=== PATIENT | female | born 1945 | race Caucasian/White ===

== ENCOUNTER → 2016-10-29 | Outpatient (CLI) | payer MEDICARE, OTHER ==
[~2016-10-29] VITALS: Ht 165.1 cm; Wt 68.9 kg
[~2016-10-29] MED LIST: /ESOM40CA OR; AMLO10CA PO; AMLO5TAB OR; AMLODIPINE/BENAZEPRI; ASPI81TA83 OR; ASPI81TA85 PO; BENA10TA2 OR; BONI150T PO; BONIVA OR; CALC500T49 PO; CALCCHW12; CALCCHW12 PO; CALCIUM CARBONATE; CYMB60CA3 PO; DULO20CA OR; EVIS1TAB PO; EYEDRO; FERR325T3 PO; FISH1000 OR; FISHCAP; FLECTOR1.3 TOP; HYDR-2808 PO; HYDROCODONE APAP; IBUP400T; LEVO100T5 PO; LEVO50TA2; LEVO75TA2 OR; LIDO5DIS TD; LIDO5DIS36 TD; LIDOCAINE 2% INJ 100 MG/5 ML SDV (FOR ANES.) As Ordered ONE; LIPI10TA; LUBRICANT EYE DROPS OU; MULT1TAB9 PO; NEXIUM; NS 1,000 ML IV SCH; OMEG1CAP16 PO; PROPOFOL 500 MG/50 ML VIAL As Ordered ONE; RANI1TAB38 PO; SIMV20TA2 OR; SIMV20TA2 PO; SKEL-29 PO; SKEL800T5 OR; TOPA50TA7 PO; TOPI25TA2 OR; TUMS500C OR; TYLENOL #3; TYLENOL #3 OR; VICO5TAB; VITA200016 PO; VITA250L PO; VITA500C24 PO; VITACAP31; VITAMIN D50000 UNT OR; VOLT1GEL EX; VOLT1GEL24 TD; [UNRECOGNIZED DRUG - OTHER]; [UNRECOGNIZED DRUG - OTHER]; hydrocodone; lotrel PO
--- NOTE | 2016-10-29 08:17 | ROOR ---
Patient Name: Janet Burroughs Procedure Date: 10/29/2016 8:02 AM Date of : 1945 Age: 71 Room: [facility] Gender: Female Note Status: Finalized Procedure: Upper GI endoscopy + SBB Indications: Iron deficiency anemia, Heartburn Providers: Homer Moreno MD Referring MD: Homer Freeman MD Requesting Provider: Medicines: Monitored Anesthesia Care Complications: No immediate complications. Procedure: Pre-Anesthesia Assessment: - The heart rate, respiratory rate, oxygen saturations, blood pressure, adequacy of pulmonary ventilation, and response to care were monitored throughout the procedure. The Endoscope was introduced through the mouth, and advanced to the second part of duodenum. The upper GI endoscopy was accomplished without difficulty. The patient tolerated the procedure well. Findings: The Z-line was variable and was found 40 cm from the incisors. A small hiatal hernia was present. No other significant abnormalities were identified in a careful examination of the stomach. The exam of the duodenum was otherwise normal. Biopsies for histology were taken with a cold forceps in the first portion of the duodenum for evaluation of celiac disease. The exam was otherwise without abnormality. Impression: - Z-line variable, 40 cm from the incisors. - Small hiatal hernia. - The examination was otherwise normal. - Biopsies were taken with a cold forceps for evaluation of celiac disease. - The examination was otherwise normal. Recommendation: - Patient has a contact number available for emergencies. The signs and symptoms of potential delayed complications were discussed with the patient. Return to normal activities tomorrow. Written discharge instructions were provided to the patient. - Discharge patient to home. - Follow an antireflux regimen. - Continue present medications. - Await pathology results. - Telephone GI clinic for pathology results in 1 week. - Check Portal Online for Path Results.([email or web address]) - Return to referring physician. - The findings and recommendations were discussed with the patient's family. Homer Moreno MD Homer Moreno MD 10/29/2016 8:16:35 AM This report has been signed electronically. Number of Addenda: 0 Note Initiated On: 10/29/2016 8:02 AM Estimated Blood Loss: Estimated blood loss: none.
--- NOTE | 2016-10-29 08:36 | ROOR ---
Patient Name: Janet Burroughs Procedure Date: 10/29/2016 8:02 AM Date of : 1945 Age: 71 Room: [facility] Gender: Female Note Status: Finalized Procedure: Colonoscopy to Cecum Indications: Unexplained iron deficiency anemia Providers: Homer Moreno MD Referring MD: Homer Freeman MD Requesting Provider: Medicines: Monitored Anesthesia Care Complications: No immediate complications. Procedure: Pre-Anesthesia Assessment: - The heart rate, respiratory rate, oxygen saturations, blood pressure, adequacy of pulmonary ventilation, and response to care were monitored throughout the procedure. The Colonoscope was introduced through the anus and advanced to the cecum, identified by appendiceal orifice and ileocecal valve. The colonoscopy was performed without difficulty. The patient tolerated the procedure well. The quality of the bowel preparation was poor. Findings: The perianal and digital rectal examinations were normal. Non-bleeding internal hemorrhoids were found during retroflexion. The hemorrhoids were small and Grade I (internal hemorrhoids that do not prolapse). Multiple small and large-mouthed diverticula were found in the recto-sigmoid colon, sigmoid colon and descending colon. The exam was otherwise without abnormality on direct and retroflexion views. Impression: - Preparation of the colon was poor. - Non-bleeding internal hemorrhoids. - Diverticulosis in the recto-sigmoid colon, in the sigmoid colon and in the descending colon. - The examination was otherwise normal on direct and retroflexion views. - No specimens collected. - The exam was otherwise normal to the cecum. Recommendation: - Patient has a contact number available for emergencies. The signs and symptoms of potential delayed complications were discussed with the patient. Return to normal activities tomorrow. Written discharge instructions were provided to the patient. - High fiber diet. - Discharge patient to home. - Continue present medications. - Repeat colonoscopy for symptoms only. - Return to referring physician. - The findings and recommendations were discussed with the patient's family. Homer Moreno MD Homer Moreno MD 10/29/2016 8:35:59 AM This report has been signed electronically. Number of Addenda: 0 Note Initiated On: 10/29/2016 8:02 AM Estimated Blood Loss: Estimated blood loss: none.
[2016-10-29 08:50] VITALS: BP 142/81
== END | disposition home or self-care (01) ==
LOC: M OPP 06:41
PROVIDERS: ATTEND Internal Medicine Gastroenterology
DX: D50.9 Iron deficiency anemia, unspecified (principal); K64.0 First degree hemorrhoids; K57.30 Diverticulosis of large intestine without perforation or abscess without bleeding; K21.9 Gastro-esophageal reflux disease without esophagitis; K22.8 Other specified diseases of esophagus; K44.9 Diaphragmatic hernia without obstruction or gangrene; I10 Essential (primary) hypertension; E78.00 Pure hypercholesterolemia, unspecified; E03.9 Hypothyroidism, unspecified; M19.90 Unspecified osteoarthritis, unspecified site; B19.10 Unspecified viral hepatitis B without hepatic coma; F33.9 Major depressive disorder, recurrent, unspecified; G43.909 Migraine, unspecified, not intractable, without status migrainosus; Z79.899 Other long term (current) drug therapy; Z79.82 Long term (current) use of aspirin

== ENCOUNTER → 2017-01-18 | Outpatient (CLI) | payer MEDICARE, OTHER ==
[~2017-01-18] MED LIST changes: -LIDO5DIS36 TD; +LIDO5DIS41 TD; -LIDOCAINE 2% INJ 100 MG/5 ML SDV (FOR ANES.) As Ordered ONE; -NS 1,000 ML IV SCH; -PROPOFOL 500 MG/50 ML VIAL As Ordered ONE; -SKEL-29 PO; +SKEL800T97 PO; -TOPA50TA7 PO; +TOPA50TA8 PO; +VOLT1GEL15 TD; -VOLT1GEL24 TD
[2017-01-18 10:45] LABS: FREE T4 0.8 NG/DL (0.76-1.46)
== END ==
LOC: M LAB 09:14
PROVIDERS: ATTEND Family Medicine
DX: E03.8 Other specified hypothyroidism (principal)

== ENCOUNTER → 2017-07-11 | Outpatient (CLI) | payer MEDICARE, OTHER ==
[2017-07-11 17:13] LABS: FREE T4 1.22 NG/DL (0.76-1.46); THYROID STIMULATING HORMONE 0.761 uIU/ML (0.358-3.740)
== END ==
LOC: M LAB 16:03
DX: E89.0 Postprocedural hypothyroidism (principal)
CPT/HCPCS: 84443

== ENCOUNTER → 2018-04-10 | Outpatient (CLI) | payer MEDICARE, OTHER ==
[~2018-04-10] MED LIST changes: -/ESOM40CA OR; -AMLO10CA PO; -AMLO5TAB OR; -AMLODIPINE/BENAZEPRI; -ASPI81TA83 OR; -ASPI81TA85 PO; -BENA10TA2 OR; -BONI150T PO; -BONIVA OR; -CALC500T49 PO; -CALCCHW12; -CALCCHW12 PO; -CALCIUM CARBONATE; -CYMB60CA3 PO; -DULO20CA OR; +E-Z-GAS II EFFERVESCENT PACKET (SODIUM BICARB./CITRIC ACID/SIMETHICONE) As Ordered; +E-Z-HD 98% w/w 340GM SUSP BTL As Ordered; +E-Z-PAQUE 96% w/w SUSP 176GM BTL As Ordered; -EVIS1TAB PO; -EYEDRO; -FERR325T3 PO; -FISH1000 OR; -FISHCAP; -FLECTOR1.3 TOP; -HYDR-2808 PO; -HYDROCODONE APAP; -IBUP400T; -LEVO100T5 PO; -LEVO50TA2; -LEVO75TA2 OR; -LIDO5DIS TD; -LIDO5DIS41 TD; -LIPI10TA; -LUBRICANT EYE DROPS OU; -MULT1TAB9 PO; -NEXIUM; -OMEG1CAP16 PO; -RANI1TAB38 PO; -SIMV20TA2 OR; -SIMV20TA2 PO; -SKEL800T5 OR; -SKEL800T97 PO; -TOPA50TA8 PO; -TOPI25TA2 OR; -TUMS500C OR; -TYLENOL #3; -TYLENOL #3 OR; -VICO5TAB; -VITA200016 PO; -VITA250L PO; -VITA500C24 PO; -VITACAP31; -VITAMIN D50000 UNT OR; -VOLT1GEL EX; -VOLT1GEL15 TD; -[UNRECOGNIZED DRUG - OTHER]; -[UNRECOGNIZED DRUG - OTHER]; -hydrocodone; -lotrel PO
== END ==
LOC: M RAD 09:23
DX: K21.9 Gastro-esophageal reflux disease without esophagitis (principal); R13.12 Dysphagia, oropharyngeal phase
CPT/HCPCS: 74220

== ENCOUNTER → 2018-05-19 | Outpatient (CLI) | payer MEDICARE, OTHER | LOC: M ST 08:18 | DX: R13.12 Dysphagia, oropharyngeal phase (principal) | CPT/HCPCS: 74230 ==

== ENCOUNTER 2018-06-10 07:57 | Outpatient (RCR) | payer MEDICARE, OTHER ==
[~2018-06-10 07:57] MED LIST changes: +/ESOM40CA OR; +AMLO10CA PO; +AMLO5TAB OR; +AMLODIPINE/BENAZEPRI; +ASPI81TA83 OR; +ASPI81TA85 PO; +BENA10TA2 OR; +BONI150T PO; +BONIVA OR; +CALC500T49 PO; +CALCCHW12; +CALCCHW12 PO; +CALCIUM CARBONATE; +CYMB60CA3 PO; +DULO20CA OR; -E-Z-GAS II EFFERVESCENT PACKET (SODIUM BICARB./CITRIC ACID/SIMETHICONE) As Ordered; -E-Z-HD 98% w/w 340GM SUSP BTL As Ordered; -E-Z-PAQUE 96% w/w SUSP 176GM BTL As Ordered; +EVIS1TAB PO; +EYEDRO; +FERR325T3 PO; +FISH1000 OR; +FISHCAP; +FLECTOR1.3 TOP; +HYDR-2808 PO; +HYDROCODONE APAP; +IBUP400T; +LEVO100T5 PO; +LEVO50TA2; +LEVO75TA2 OR; +LIDO5DIS TD; +LIDO5DIS41 TD; +LIPI10TA; +LUBRICANT EYE DROPS OU; +MULT1TAB9 PO; +NEXIUM; +OMEG1CAP16 PO; +RANI1TAB38 PO; +SIMV20TA2 OR; +SIMV20TA2 PO; +SKEL800T5 OR; +SKEL800T97 PO; +TOPA50TA8 PO; +TOPI25TA2 OR; +TUMS500C OR; +TYLENOL #3; +TYLENOL #3 OR; +VICO5TAB; +VITA200016 PO; +VITA250L PO; +VITA500C24 PO; +VITACAP31; +VITAMIN D50000 UNT OR; +VOLT1GEL EX; +VOLT1GEL15 TD; +[UNRECOGNIZED DRUG - OTHER]; +[UNRECOGNIZED DRUG - OTHER]; +hydrocodone; +lotrel PO
--- NOTE | 2018-06-10 11:42 | NUR ---
Pt tolerates regular solids and thin liquids w/o s/sx aspiration or penetration. Recommend dysphagia tx for GERD management strategies. Addendum: 06/10/18 at [address] [facility] Amended: Links added.
== END 2018-07-07 ==
LOC: M ST 07:57
PROVIDERS: ATTEND Otolaryngology
DX: R13.12 Dysphagia, oropharyngeal phase (principal)
CPT/HCPCS: 92526; 92610; G8996; G8997; G8998

== ENCOUNTER 2018-12-03 07:26 | Day surgery (SDC) | payer MEDICARE, OTHER ==
[~2018-12-03] VITALS: Ht 165.1 cm; Wt 66.2 kg
[~2018-12-03 07:26] MED LIST changes: -/ESOM40CA OR; +ACETAMINOPHEN 325 MG TAB PO PRN; -BONI150T PO; +BONI1TAB PO; +BSS with VANC/TOB/EPI for EYE CASES IR ONE; +CALC500C16 PO; +CYCLOPENTOLATE 2% OPHTH SOLN 2ML BTL OS ONE; +CYMB1CAP4 OR; -DULO20CA OR; +HEALON DUET PRO(HEALON 10MG/ML 0.55ML & HEALON ENDOCOAT 30MG/ML 0.85ML) As Ordered ONE; +LIDOCAINE 1% SDV 5 ML VIAL As Ordered ONE; +LIDOCAINE 2% W/EPIN INJ 20ML **PRES FREE As Ordered ONE; +LIDOCAINE 3.5 % 1ML OPHTH TOPICAL GEL OU ONE; +MIDAZOLAM INJ 2 MG/2 ML VIAL (J2250) As Ordered ONE; +MOXIFLOXACIN IN BSS 0.25MG/0.25ML INTRACAMERAL INJ (OR EYE ONLY)(J2280) As Ordered ONE; +MULT-40 PO; +NEXI1CAP3 OR; +OFLOXACIN 0.3 % (OCUFLOX) OPTH SOL 5ML OS ONE; +PHENYLEPHRINE 2.5% OPHTH SOL 2ML OS ONE; +PHENYLEPHRINE HCL 10 % OPHTH. SOL 5ML OS PRN; +POVIDONE-IODINE 5% OPHTH PREP SOL 30ML As Ordered ONE; +TRIAMCINOLONE PRES FR 40 MG/ML 1ML(TRIESENCE)(OR EYE ONLY)(J3300 PER 1MG) As Ordered ONE; +TROPICAMIDE 1% OPHTH SOLN 2ML OS ONE; +fentaNYL 100 MCG/2 ML INJECTION (J3010) As Ordered ONE
[2018-12-03] MEDS ORDERED: AcetaZOLAMIDE 500 MG ER CAP As Ordered ONE (09:47)
[2018-12-03 09:55] VITALS: BP 189/79
[2018-12-03] MEDS ORDERED: TRIMETHOBENZAMIDE 300 MG CAP PO PRN (10:00)
[2018-12-03] MEDS ORDERED: AcetaZOLAMIDE 500 MG ER CAP PO ONE (10:00)
== END 2018-12-03 10:08 | disposition home or self-care (01) ==
LOC: M SDC 07:26
PROVIDERS: ATTEND Ophthalmology
DX: H25.9 Unspecified age-related cataract (principal); I10 Essential (primary) hypertension; E78.5 Hyperlipidemia, unspecified; E03.9 Hypothyroidism, unspecified; G43.909 Migraine, unspecified, not intractable, without status migrainosus; Z79.899 Other long term (current) drug therapy
CPT/HCPCS: 66984; 92015; J2250; J2280; J3010; J3300; V2632

== ENCOUNTER → 2019-02-19 | Outpatient (CLI) | payer MEDICARE, OTHER ==
[~2019-02-19] MED LIST changes: -ACETAMINOPHEN 325 MG TAB PO PRN; -AMLO10CA PO; +AMLO10CA17 PO; -BSS with VANC/TOB/EPI for EYE CASES IR ONE; -CYCLOPENTOLATE 2% OPHTH SOLN 2ML BTL OS ONE; +E-Z-GAS II EFFERVESCENT PACKET (SODIUM BICARB./CITRIC ACID/SIMETHICONE) As Ordered ONE; +E-Z-HD 98% w/w 340GM SUSP BTL As Ordered ONE; +E-Z-PAQUE 96% w/w SUSP 176GM BTL As Ordered ONE; -HEALON DUET PRO(HEALON 10MG/ML 0.55ML & HEALON ENDOCOAT 30MG/ML 0.85ML) As Ordered ONE; -LIDOCAINE 1% SDV 5 ML VIAL As Ordered ONE; -LIDOCAINE 2% W/EPIN INJ 20ML **PRES FREE As Ordered ONE; -LIDOCAINE 3.5 % 1ML OPHTH TOPICAL GEL OU ONE; -MIDAZOLAM INJ 2 MG/2 ML VIAL (J2250) As Ordered ONE; -MOXIFLOXACIN IN BSS 0.25MG/0.25ML INTRACAMERAL INJ (OR EYE ONLY)(J2280) As Ordered ONE; -OFLOXACIN 0.3 % (OCUFLOX) OPTH SOL 5ML OS ONE; -PHENYLEPHRINE 2.5% OPHTH SOL 2ML OS ONE; -PHENYLEPHRINE HCL 10 % OPHTH. SOL 5ML OS PRN; -POVIDONE-IODINE 5% OPHTH PREP SOL 30ML As Ordered ONE; -TRIAMCINOLONE PRES FR 40 MG/ML 1ML(TRIESENCE)(OR EYE ONLY)(J3300 PER 1MG) As Ordered ONE; -TROPICAMIDE 1% OPHTH SOLN 2ML OS ONE; -fentaNYL 100 MCG/2 ML INJECTION (J3010) As Ordered ONE
--- NOTE | 2019-02-19 15:58 | REP ---
Examination Requested: Esophagram Barium Swallow Reason For Exam/Comment: Dysphasia Esophagram: The procedure was performed MOSHE Armenta, under the direct supervision of Dr. Pelaez. The images were reviewed with Dr. Pelaez. A single PA chest x-ray is submitted as a sharepoint trainer film. The superior mediastinal structures are midline. The heart size is within normal limits. The lungs are clear. Liquid barium and gas producing granules were given in the erect position as well as liquid barium in the prone oblique position, in order to perform a double contrast esophagram examination. Oral and pharyngeal stages of the examination demonstrate laryngeal penetration. Esophageal transport is efficient and there is no esophagitis, stricture, or mucosal ring noted. There is no hiatal hernia noted. Gastroesophageal reflux was not visualized throughout the course of the exam. Impression: 1. Laryngeal penetration, otherwise unremarkable esophagram 0.4 minutes of fluoroscopy time was utilized for this procedure. Some fluoroscopic images are performed with last image hold technology. These images require no additional radiation. Reviewed by MOSHE Richardson 02/19/2019 12:59 P Electronically Signed by Ray Pelaez DO 02/19/2019 03:49 P
== END ==
LOC: M RAD 07:40
PROVIDERS: ATTEND Otolaryngology
DX: K21.9 Gastro-esophageal reflux disease without esophagitis (principal); R13.12 Dysphagia, oropharyngeal phase

== ENCOUNTER 2019-04-06 09:00 | Day surgery (SDC) | payer MEDICARE, OTHER ==
[~2019-04-06] VITALS: Ht 165.1 cm; Wt 65.7 kg
[2019-04-06] MEDS: NS 1,000 ML IV SCH ×2 (06:00→09:29)
[~2019-04-06 09:00] MED LIST changes: +DONE10TA90 PO; -E-Z-GAS II EFFERVESCENT PACKET (SODIUM BICARB./CITRIC ACID/SIMETHICONE) As Ordered ONE; -E-Z-HD 98% w/w 340GM SUSP BTL As Ordered ONE; -E-Z-PAQUE 96% w/w SUSP 176GM BTL As Ordered ONE; +LIDOCAINE 2% INJ 100 MG/5 ML SDV (FOR ANES.) As Ordered ONE; +OMEP40CA2 PO; +PROPOFOL 200 MG/20 ML VIAL As Ordered ONE; +SALA1TAB PO
[2019-04-06] MEDS ORDERED: fentaNYL 100 MCG/2 ML INJECTION (J3010) As Ordered ONE (10:08)
[2019-04-06] MEDS ORDERED: PROPOFOL 200 MG/20 ML VIAL As Ordered ONE (10:37)
--- NOTE | 2019-04-06 10:56 | ROOR ---
Patient Name: Janet Burroughs Procedure Date: 04/06/2019 10:02 AM Date of : 1945 Age: 74 Room: [facility] Gender: Female Note Status: Finalized Procedure: Upper GI endoscopy Indications: Dysphagia, Suspected esophageal reflux Providers: Get Trevizo MD Referring MD: Christi Perez NP Requesting Provider: Medicines: Monitored Anesthesia Care Complications: No immediate complications. Procedure: Pre-Anesthesia Assessment: - Prior to the procedure, a History and Physical was performed, and patient medications and allergies were reviewed. The patient is competent. The risks and benefits of the procedure and the sedation options and risks were discussed with the patient. All questions were answered and informed consent was obtained. Patient identification and proposed procedure were verified by the physician, the nurse and the anesthesiologist in the procedure room. Mental Status Examination: normal. Airway Examination: normal oropharyngeal airway and neck mobility. Respiratory Examination: clear to auscultation. CV Examination: normal. Prophylactic Antibiotics: The patient does not require prophylactic antibiotics. Prior Anticoagulants: The patient has taken no previous anticoagulant or antiplatelet agents. ASA Grade Assessment: II - A patient with mild systemic disease. After reviewing the risks and benefits, the patient was deemed in satisfactory condition to undergo the procedure. The anesthesia plan was to use monitored anesthesia care (MAC). Immediately prior to administration of medications, the patient was re-assessed for adequacy to receive sedatives. The heart rate, respiratory rate, oxygen saturations, blood pressure, adequacy of pulmonary ventilation, and response to care were monitored throughout the procedure. The physical status of the patient was re-assessed after the procedure. The Endoscope was introduced through the mouth, and advanced to the second part of duodenum. The upper GI endoscopy was accomplished without difficulty. The patient tolerated the procedure well. Findings: LA Grade A (one or more mucosal breaks less than 5 mm, not extending between tops of 2 mucosal folds) esophagitis with no bleeding was found in the distal esophagus. Biopsies were taken with a cold forceps for histology. Verification of patient identification for the specimen was done by the physician and nurse using the patient's name, date and medical record number. Estimated blood loss was minimal. The Z-line was irregular and was found 41 cm from the incisors. Biopsies were obtained from the proximal and distal esophagus with cold forceps for histology of suspected eosinophilic esophagitis. Scattered mild inflammation characterized by erythema and granularity was found in the gastric body and in the gastric antrum. Biopsies were taken with a cold forceps for Helicobacter pylori testing. The duodenal bulb and second portion of the duodenum were normal. Impression: - LA Grade A reflux esophagitis. Rule out Varner's esophagus. Biopsied. - Z-line irregular, 41 cm from the incisors. Biopsied. - Gastritis. Biopsied. - Normal duodenal bulb and second portion of the duodenum. Recommendation: - Patient has a contact number available for emergencies. The signs and symptoms of potential delayed complications were discussed with the patient. Return to normal activities tomorrow. Written discharge instructions were provided to the patient. - High fiber diet. - Continue present medications. - Follow an antireflux regimen. - Perform a modified barium swallow at appointment to be scheduled. - Await pathology results. - Return to GI clinic in [facility] (address [address], [address], [place] [address]) in 4 -- 6 weeks. Please call GI clinic @ [phone] for apppointment date and time. - Return to primary care physician. Get Trevizo MD Get Trevizo MD 04/06/2019 10:55:48 AM Electronically signed by Get Trevizo MD Number of Addenda: 0 Note Initiated On: 04/06/2019 10:02 AM Estimated Blood Loss: Estimated blood loss was minimal.
--- NOTE | 2019-04-06 11:00 | ROOR ---
Patient Name: Janet Burroughs Procedure Date: 04/06/2019 10:03 AM Date of : 1945 Age: 74 Room: [facility] Gender: Female Note Status: Finalized Procedure: Colonoscopy Indications: Weight loss Providers: Get Trevizo MD Referring MD: Christi Perez NP Requesting Provider: Medicines: Monitored Anesthesia Care Complications: No immediate complications. Procedure: Pre-Anesthesia Assessment: - Prior to the procedure, a History and Physical was performed, and patient medications and allergies were reviewed. The patient is competent. The risks and benefits of the procedure and the sedation options and risks were discussed with the patient. All questions were answered and informed consent was obtained. Patient identification and proposed procedure were verified by the physician, the nurse and the anesthesiologist in the procedure room. Mental Status Examination: alert and oriented. Airway Examination: normal oropharyngeal airway and neck mobility. Respiratory Examination: clear to auscultation. CV Examination: normal. Prophylactic Antibiotics: The patient does not require prophylactic antibiotics. Prior Anticoagulants: The patient has taken no previous anticoagulant or antiplatelet agents. ASA Grade Assessment: II - A patient with mild systemic disease. After reviewing the risks and benefits, the patient was deemed in satisfactory condition to undergo the procedure. The anesthesia plan was to use monitored anesthesia care (MAC). Immediately prior to administration of medications, the patient was re-assessed for adequacy to receive sedatives. The heart rate, respiratory rate, oxygen saturations, blood pressure, adequacy of pulmonary ventilation, and response to care were monitored throughout the procedure. The physical status of the patient was re-assessed after the procedure. The Colonoscope was introduced through the anus and advanced to the terminal ileum, with identification of the appendiceal orifice and IC valve. The colonoscopy was performed without difficulty. The patient tolerated the procedure well. The quality of the bowel preparation was fair. The terminal ileum, ileocecal valve, appendiceal orifice, and rectum were photographed. Scope insertion time was 4 minutes. Scope withdrawal time was 9 minutes. The total duration of the procedure was 14 minutes. Findings: The perianal and digital rectal examinations were normal. The terminal ileum appeared normal. Two sessile polyps were found in the transverse colon. The polyps were 6 to 8 mm in size. These polyps were removed with a cold snare. Resection and retrieval were complete. Verification of patient identification for the specimen was done by the physician and nurse using the patient's name, date and medical record number. Estimated blood loss was minimal. Semi-liquid semi-solid stool was found from sigmoid to ascending colon, interfering with visualization. Lavage of the area was performed using a large amount of sterile water, resulting in clearance with fair visualization. Multiple small and large-mouthed diverticula were found in the sigmoid colon. There was no evidence of diverticular bleeding. Non-bleeding external and internal hemorrhoids were found during retroflexion. The hemorrhoids were medium-sized. Impression: - Preparation of the colon was fair. - The examined portion of the ileum was normal. - Two 6 to 8 mm polyps in the transverse colon, removed with a cold snare. Resected and retrieved. - Stool from sigmoid to ascending colon. - Diverticulosis in the sigmoid colon. There was no evidence of diverticular bleeding. - Non-bleeding external and internal hemorrhoids. Recommendation: - Patient has a contact number available for emergencies. The signs and symptoms of potential delayed complications were discussed with the patient. Return to normal activities tomorrow. Written discharge instructions were provided to the patient. - High fiber diet. - Continue present medications. - Await pathology results. - Repeat colonoscopy in 1 year for surveillance based on pathology results. - Return to GI clinic in [facility] (address [address], [address], [place], [address]) in 4 -- 6 weeks. Please call GI clinic @ [phone] for apppointment date and time. - Return to primary care physician. Get Trevizo MD Get Trevizo MD 04/06/2019 11:00:39 AM Electronically signed by Get Trevizo MD Number of Addenda: 0 Note Initiated On: 04/06/2019 10:03 AM Estimated Blood Loss: Estimated blood loss was minimal.
[2019-04-06 11:10] VITALS: BP 165/68
== END 2019-04-06 11:25 | disposition home or self-care (01) ==
LOC: M OPP 09:00
PROVIDERS: ATTEND Internal Medicine Gastroenterology
DX: R63.4 Abnormal weight loss (principal); D12.3 Benign neoplasm of transverse colon; K57.30 Diverticulosis of large intestine without perforation or abscess without bleeding; K64.8 Other hemorrhoids; R13.10 Dysphagia, unspecified; K22.8 Other specified diseases of esophagus; K29.70 Gastritis, unspecified, without bleeding; K21.0 Gastro-esophageal reflux disease with esophagitis; I10 Essential (primary) hypertension; E78.5 Hyperlipidemia, unspecified; E03.9 Hypothyroidism, unspecified; G30.9 Alzheimer's disease, unspecified; Z86.19 Personal history of other infectious and parasitic diseases; M19.90 Unspecified osteoarthritis, unspecified site; F32.9 Major depressive disorder, single episode, unspecified; Z79.899 Other long term (current) drug therapy
CPT/HCPCS: 43239; 45385; 88305; J3010

== ENCOUNTER → 2019-05-06 | Outpatient (CLI) | payer MEDICARE, OTHER ==
[~2019-05-06] MED LIST changes: +E-Z-PAQUE 96% w/w SUSP 176GM BTL As Ordered ONE; -LIDOCAINE 2% INJ 100 MG/5 ML SDV (FOR ANES.) As Ordered ONE; -OMEP40CA2 PO; +OMEP40CA97 PO; -PROPOFOL 200 MG/20 ML VIAL As Ordered ONE; +VARIBAR NECTAR 40% w/v 240ML SUSP BTL As Ordered ONE; +VARIBAR PUDDING 40% w/v 230ML TUBE As Ordered ONE
--- NOTE | 2019-05-07 14:40 | REP ---
COOKIE SWALLOW The procedure was performed under the direct supervision of Dr. Chris. The procedure was performed with the Yani Bonilla from speech pathology present. 5 ml aliquots of thin, mixed fruit, soft, solid and apple sauce consistency barium was administered. With thin consistency barium there is laryngeal penetration. The detailed report of this examination will be provided by speech pathology. 2 minutes of fluoroscopy time was utilized for this procedure. Electronically Signed by MOSHE Lemus 05/06/2019 04:52 P Electronically Signed by Fabio Chris MD 05/07/2019 02:31 P
== END ==
LOC: M RAD 14:49
PROVIDERS: ATTEND Internal Medicine Gastroenterology
DX: R13.10 Dysphagia, unspecified (principal)

== ENCOUNTER → 2019-06-02 | Outpatient (CLI) | payer MEDICARE, OTHER ==
[~2019-06-02] MED LIST changes: +E-Z-GAS II EFFERVESCENT PACKET (SODIUM BICARB./CITRIC ACID/SIMETHICONE) As Ordered ONE; +E-Z-HD 98% w/w 340GM SUSP BTL As Ordered ONE; -SIMV20TA2 PO; +SIMV20TA22 PO; -VARIBAR NECTAR 40% w/v 240ML SUSP BTL As Ordered ONE; -VARIBAR PUDDING 40% w/v 230ML TUBE As Ordered ONE
--- NOTE | 2019-06-02 15:12 | REP ---
Examination Requested: Esophagram Barium Swallow Reason For Exam/Comment: Dysphasia Esophagram: The procedure was performed Gwen Gage, RSA, under the direct supervision of Dr. Charles. The images were reviewed with Dr. Charles. A single PA chest x-ray is submitted as a finished stock inspector film. The superior mediastinal structures are midline. The heart size is within normal limits. The lungs are clear. Liquid barium and gas producing granules were given in the erect position as well as liquid barium in the prone oblique position, in order to perform a double contrast esophagram examination. Oral and pharyngeal stages of the examination again demonstrated laryngeal penetration, consistent with findings on the modified barium swallow dated 05/06/2019 and an esophagram dated 02/19/2019. Esophageal transport is efficient and there is no esophagitis, stricture, or mucosal ring noted. There is no hiatal hernia noted. Gastroesophageal reflux was not visualized throughout the course of the exam. Impression: 1. Laryngeal penetration. 0.4 minutes of fluoroscopy time was utilized for this procedure. Some fluoroscopic images are performed with last image hold technology. These images require no additional radiation. Reviewed by MOSHE Richardson 06/02/2019 01:42 P Electronically Signed by Clint Charles MD 06/02/2019 03:02 P
== END ==
LOC: M RAD 08:11
PROVIDERS: ATTEND Internal Medicine Gastroenterology
DX: R13.12 Dysphagia, oropharyngeal phase (principal)

== ENCOUNTER → 2019-07-17 | Outpatient (CLI) | payer MEDICARE, BC ==
[~2019-07-17] MED LIST changes: -E-Z-GAS II EFFERVESCENT PACKET (SODIUM BICARB./CITRIC ACID/SIMETHICONE) As Ordered ONE; -E-Z-HD 98% w/w 340GM SUSP BTL As Ordered ONE; -E-Z-PAQUE 96% w/w SUSP 176GM BTL As Ordered ONE
[2019-07-17 09:34] LABS: BLOOD UREA NITROGEN 17 MG/DL (7-18); CREATININE FOR GFR 0.75 MG/DL (0.55-1.30); GLOMERULAR FILTRATION RATE > 60.0 (>39)
== END ==
LOC: M LAB 08:15
PROVIDERS: ATTEND Internal Medicine Gastroenterology
DX: R63.4 Abnormal weight loss (principal); K21.0 Gastro-esophageal reflux disease with esophagitis

== ENCOUNTER → 2019-07-30 | Outpatient (CLI) | payer MEDICARE, BC ==
[~2019-07-30] MED LIST changes: +PROHANCE 279.3MG/ML 15ML VIAL (A9576) As Ordered ONE
--- NOTE | 2019-07-30 11:01 | REP ---
MRI brain without and with IV contrast: History: Dysphasia. No comparison brain imaging. Technique: Axial and sagittal imaging planes are utilized for T1 and T2-weighted scans. Sequences include spin-echo, fast spin echo, FLAIR, and diffusion weighted sequences. Gadolinium enhancement dose is 12 mL of intravenous ProHance. MRI findings: The bony calvarium is unremarkable. Craniocervical junction and upper cervical cord are normal in appearance. Diffusion weighted scans show no evidence of restricted diffusion to suggest acute ischemia. There is no evidence of old cortical or deep white matter infarction. There are small vessel atherosclerotic changes in the periventricular white matter of the frontal and occipital lobes bilaterally. Lateral, third, and fourth ventricles are normal in size and position. No extra-axial fluid collection or mass is seen. Postcontrast images demonstrate enhancement in normal vascular structures. No abnormal intracranial contrast enhancement is appreciated. Impression: Small vessel atherosclerotic changes in the periventricular white matter. Otherwise unremarkable MRI study of the brain without and with IV contrast. No acute intracranial lesion. Electronically Signed by Ra Guillen MD 07/30/2019 11:19 A
== END ==
LOC: M RAD 08:46
PROVIDERS: ATTEND Internal Medicine Gastroenterology
DX: R13.12 Dysphagia, oropharyngeal phase (principal)
CPT/HCPCS: 70553; A9576

== ENCOUNTER → 2020-05-25 | Outpatient (CLI) | payer MEDICARE, BC, OTHER ==
[~2020-05-25] MED LIST changes: +AMLO10CA22 PO; +ASPI81CH33 PO; -ASPI81TA85 PO; +ASPI81TA86 PO; -HYDR-2808 PO; +HYDR-4429 PO; -PROHANCE 279.3MG/ML 15ML VIAL (A9576) As Ordered ONE
== END ==
LOC: M LABSMTC 09:24
PROVIDERS: ATTEND Anesthesiology
DX: Z01.812 Encounter for preprocedural laboratory examination (principal); Z20.828 Contact with and (suspected) exposure to other viral communicable diseases

== ENCOUNTER 2020-05-30 07:35 | Day surgery (SDC) | payer MEDICARE, BC ==
[~2020-05-30] VITALS: Ht 165.1 cm; Wt 62.1 kg
[~2020-05-30 07:35] MED LIST changes: +NS 1,000 ML IV ONE
[2020-05-30] MEDS ORDERED: propofoL 200 MG/20 ML VIAL As Ordered ONE (08:51)
--- NOTE | 2020-05-30 09:36 | ROOR ---
Patient Name: Janet Burroughs Procedure Date: 05/30/2020 8:49 AM Date of : 1945 Age: 75 Room: [facility] Gender: Female Note Status: Finalized Procedure: Colonoscopy Indications: High risk colon cancer surveillance: Personal history of colonic polyps Providers: Get Trevizo MD Referring MD: Christi Perez NP Requesting Provider: Medicines: Monitored Anesthesia Care Complications: No immediate complications. Procedure: Pre-Anesthesia Assessment: - Prior to the procedure, a History and Physical was performed, and patient medications and allergies were reviewed. The patient is competent. The risks and benefits of the procedure and the sedation options and risks were discussed with the patient. All questions were answered and informed consent was obtained. Patient identification and proposed procedure were verified by the physician, the nurse and the anesthesiologist in the procedure room. Mental Status Examination: alert and oriented. Airway Examination: normal oropharyngeal airway and neck mobility. Respiratory Examination: clear to auscultation. CV Examination: normal. Prophylactic Antibiotics: The patient does not require prophylactic antibiotics. Prior Anticoagulants: The patient has taken no previous anticoagulant or antiplatelet agents. ASA Grade Assessment: II - A patient with mild systemic disease. After reviewing the risks and benefits, the patient was deemed in satisfactory condition to undergo the procedure. The anesthesia plan was to use monitored anesthesia care (MAC). Immediately prior to administration of medications, the patient was re-assessed for adequacy to receive sedatives. The heart rate, respiratory rate, oxygen saturations, blood pressure, adequacy of pulmonary ventilation, and response to care were monitored throughout the procedure. The physical status of the patient was re-assessed after the procedure. The Colonoscope was introduced through the anus and advanced to the terminal ileum, with identification of the appendiceal orifice and IC valve. The colonoscopy was performed without difficulty. The patient tolerated the procedure well. The quality of the bowel preparation was good. The terminal ileum, ileocecal valve, appendiceal orifice, and rectum were photographed. Scope insertion time was 3 minutes. Scope withdrawal time was 10 minutes. The total duration of the procedure was 14 minutes. Findings: The perianal and digital rectal examinations were normal. The terminal ileum appeared normal. Three sessile polyps were found in the recto-sigmoid colon, descending colon and transverse colon. The polyps were 4 to 6 mm in size. These polyps were removed with a cold snare. Resection and retrieval were complete. Verification of patient identification for the specimen was done by the physician and nurse using the patient's name, date and medical record number. Estimated blood loss was minimal. Multiple small and large-mouthed diverticula were found from sigmoid to descending colon. There was no evidence of diverticular bleeding. Non-bleeding external and internal hemorrhoids were found during retroflexion. The hemorrhoids were medium-sized. Impression: - The examined portion of the ileum was normal. - Three 4 to 6 mm polyps at the recto-sigmoid colon, in the descending colon and in the transverse colon, removed with a cold snare. Resected and retrieved. - Moderate diverticulosis from sigmoid to descending colon. There was no evidence of diverticular bleeding. - Non-bleeding external and internal hemorrhoids. Recommendation: - Patient has a contact number available for emergencies. The signs and symptoms of potential delayed complications were discussed with the patient. Return to normal activities tomorrow. Written discharge instructions were provided to the patient. - High fiber diet. - Continue present medications. - Use fiber, for example Citrucel, Fibercon, Konsyl or Metamucil. - Await pathology results. - Repeat colonoscopy in 5 years for surveillance based on pathology results and depending on clinical and functional status. - Telephone GI clinic for pathology results in 2 weeks. - Return to primary care physician. Procedure Code(s): --- Professional --- 10988, Colonoscopy, flexible; with removal of tumor(s), polyp(s), or other lesion(s) by snare technique Diagnosis Code(s): --- Professional --- Z86.010, Personal history of colonic polyps K64.8, Other hemorrhoids K63.5, Polyp of colon K57.30, Diverticulosis of large intestine without perforation or abscess without bleeding CPT copyright 2019 [employer]. All rights reserved. The codes documented in this report are preliminary and upon certified coder review may be revised to meet current compliance requirements. Get Trevizo MD Get Trevizo MD 05/30/2020 9:36:14 AM Electronically signed by Get Trevizo MD Number of Addenda: 0 Note Initiated On: 05/30/2020 8:49 AM Estimated Blood Loss: Estimated blood loss was minimal.
[2020-05-30 09:55] VITALS: BP 163/74
== END 2020-05-30 09:57 | disposition home or self-care (01) ==
LOC: M OPP 07:35
PROVIDERS: ATTEND Internal Medicine Gastroenterology
DX: Z86.010 Personal history of colon polyps (principal); Z09 Encounter for follow-up examination after completed treatment for conditions other than malignant neoplasm; D12.6 Benign neoplasm of colon, unspecified; K57.30 Diverticulosis of large intestine without perforation or abscess without bleeding; K64.8 Other hemorrhoids; I10 Essential (primary) hypertension; E13.9 Other specified diabetes mellitus without complications; Z79.82 Long term (current) use of aspirin; Z79.84 Long term (current) use of oral hypoglycemic drugs; Z79.899 Other long term (current) drug therapy; Z86.19 Personal history of other infectious and parasitic diseases

== ENCOUNTER → 2021-05-31 | Outpatient (CLI) | payer MEDICARE, BC ==
[~2021-05-31] MED LIST changes: -CYMB60CA3 PO; +CYMB60CA4 PO; +ISOVUE-370 76% 100ML VIAL As Ordered ONE; -NS 1,000 ML IV ONE; +OMEP40CA4 PO; -OMEP40CA97 PO
--- NOTE | 2021-05-31 10:24 | REPVR ---
PROCEDURE INFORMATION: Exam: CT Neck With Contrast Exam date and time: 05/31/2021 9:35 AM Age: 76 years old Clinical indication: Other: Dysphagia TECHNIQUE: Imaging protocol: Computed tomography images of the neck with contrast. Radiation optimization: All CT scans at this facility use at least one of these dose optimization techniques: automated exposure control; mA and/or kV adjustment per patient size (includes targeted exams where dose is matched to clinical indication); or iterative reconstruction. Contrast material: ISOVUE 370; Contrast volume: 75 ml; Contrast route: INTRAVENOUS (IV); COMPARISON: XA Esophagram Barium Swallow 06/02/2019 11:08 AM FINDINGS: Nasopharynx: Unremarkable. Oropharynx: Unremarkable. No significant tonsillar enlargement. Hypopharynx: Unremarkable. Larynx: Unremarkable. Normal epiglottis. Retropharyngeal space: Normal. No retropharyngeal abscess. Submandibular/Parotid glands: Normal. Glands are normal in size. Thyroid: Normal. No enlarged or calcified nodules. Lymph nodes: Unremarkable. No lymphadenopathy. Trachea: Visualized trachea is unremarkable. Lungs: Unremarkable as visualized. Bones/joints: Unremarkable. No acute fracture. Soft tissues: Unremarkable. No significant soft tissue swelling. IMPRESSION: No acute findings. No obvious cause for the patient's dysphagia identified. Electronically signed by: Juventino Perez On 05/31/2021 10:23:54 AM
== END ==
LOC: M RAD 05-19 09:57
PROVIDERS: ATTEND Otolaryngology
DX: R13.10 Dysphagia, unspecified (principal)
CPT/HCPCS: 70491; Q9967

== ENCOUNTER → 2021-06-21 | Outpatient (CLI) | payer MEDICARE, BC ==
[~2021-06-21] MED LIST changes: -ISOVUE-370 76% 100ML VIAL As Ordered ONE; +LEVO75TA4 PO; +PREVAGEN PO; +RESTCAP2 PO
== END ==
LOC: M LABSMTC 10:57
PROVIDERS: ATTEND Anesthesiology
DX: Z01.818 Encounter for other preprocedural examination (principal); Z11.52 Encounter for screening for COVID-19

== ENCOUNTER 2021-06-26 11:56 | Day surgery (SDC) | payer MEDICARE, BC ==
[~2021-06-26] VITALS: Ht 165.1 cm; Wt 60.8 kg
[~2021-06-26 11:56] MED LIST changes: +NS 1,000 ML IV ONE
[2021-06-26] MEDS ORDERED: GLYCOPYRROLATE INJ 0.2 MG/ML 2 ML VIAL As Ordered ONE (13:18)
[2021-06-26] MEDS ORDERED: propofoL 200 MG/20 ML VIAL As Ordered ONE (13:18)
[2021-06-26] MEDS ORDERED: LIDOCAINE 2% 100MG/5ML SDV (FOR ANES.) As Ordered ONE (13:18)
--- NOTE | 2021-06-26 13:32 | ROOR ---
Patient Name: Janet Burroughs Procedure Date: 06/26/2021 1:13 PM Date of : 1945 Age: 76 Room: [facility] Gender: Female Note Status: Finalized Procedure: Upper GI endoscopy Indications: Dysphagia, Heartburn Providers: Get Trevizo MD Referring MD: SHAUNA AGUILAR DO Requesting Provider: Medicines: Monitored Anesthesia Care Complications: No immediate complications. Procedure: Pre-Anesthesia Assessment: - Prior to the procedure, a History and Physical was performed, and patient medications and allergies were reviewed. The patient is competent. The risks and benefits of the procedure and the sedation options and risks were discussed with the patient. All questions were answered and informed consent was obtained. Patient identification and proposed procedure were verified by the physician, the nurse and the anesthesiologist in the procedure room. Mental Status Examination: alert and oriented. Airway Examination: normal oropharyngeal airway and neck mobility. Respiratory Examination: clear to auscultation. CV Examination: normal. Prophylactic Antibiotics: The patient does not require prophylactic antibiotics. Prior Anticoagulants: The patient has taken no previous anticoagulant or antiplatelet agents. ASA Grade Assessment: II - A patient with mild systemic disease. After reviewing the risks and benefits, the patient was deemed in satisfactory condition to undergo the procedure. The anesthesia plan was to use monitored anesthesia care (MAC). Immediately prior to administration of medications, the patient was re-assessed for adequacy to receive sedatives. The heart rate, respiratory rate, oxygen saturations, blood pressure, adequacy of pulmonary ventilation, and response to care were monitored throughout the procedure. The physical status of the patient was re-assessed after the procedure. The Endoscope was introduced through the mouth, and advanced to the second part of duodenum. The upper GI endoscopy was accomplished without difficulty. The patient tolerated the procedure well. Findings: LA Grade A (one or more mucosal breaks less than 5 mm, not extending between tops of 2 mucosal folds) esophagitis with no bleeding was found in the distal esophagus. Normal mucosa was found in the upper third of the esophagus and in the middle third of the esophagus. Biopsies were obtained from the proximal and distal esophagus with cold forceps for histology of suspected eosinophilic esophagitis. Verification of patient identification for the specimen was done by the physician and nurse using the patient's name, date and medical record number. Estimated blood loss was minimal. The Z-line was irregular and was found 40 cm from the incisors. No gross lesions were noted in the entire examined stomach. The duodenal bulb and second portion of the duodenum were normal. Impression: - LA Grade A reflux esophagitis. - Normal mucosa was found in the upper third of the esophagus and in the middle third of the esophagus. Biopsied. - Z-line irregular, 40 cm from the incisors. - No gross lesions in the stomach. - Normal duodenal bulb and second portion of the duodenum. Recommendation: - Patient has a contact number available for emergencies. The signs and symptoms of potential delayed complications were discussed with the patient. Return to normal activities tomorrow. Written discharge instructions were provided to the patient. - High fiber diet. - Continue present medications. - Await pathology results. - Follow an antireflux regimen. - Return to GI clinic if persistent symptoms or new symptoms. - Return to primary care physician. Procedure Code(s): --- Professional --- 45925, Esophagogastroduodenoscopy, flexible, transoral; with biopsy, single or multiple Diagnosis Code(s): --- Professional --- K21.0, Gastro-esophageal reflux disease with esophagitis K22.8, Other specified diseases of esophagus R13.10, Dysphagia, unspecified R12, Heartburn CPT copyright 2019 [employer]. All rights reserved. The codes documented in this report are preliminary and upon [employer] salvage worker review may be revised to meet current compliance requirements. Get Trevizo MD Get Trevizo MD 06/26/2021 1:32:46 PM Electronically signed by Get Trevizo MD Number of Addenda: 0 Note Initiated On: 06/26/2021 1:13 PM Estimated Blood Loss: Estimated blood loss was minimal.
[2021-06-26 13:50] VITALS: BP 148/75
== END 2021-06-26 14:28 | disposition home or self-care (01) ==
LOC: M OPP 11:56
PROVIDERS: ATTEND Internal Medicine Gastroenterology
DX: K21.00 Gastro-esophageal reflux disease with esophagitis, without bleeding (principal); K22.89 Other specified disease of esophagus; R13.10 Dysphagia, unspecified; R12 Heartburn; Z79.82 Long term (current) use of aspirin; Z79.899 Other long term (current) drug therapy

== ENCOUNTER 2023-05-23 13:04 | Day surgery (SDC) | payer MEDICARE, BC ==
[~2023-05-23] VITALS: Ht 165.1 cm; Wt 65.7 kg
[~2023-05-23 13:04] MED LIST changes: -AMLO10CA22 PO; +AMLO10CA30 PO; +FERR325T19 PO; +IBAN150T6 PO; +MEMA10TA19 PO; +META1TAB22 PO
[2023-05-23] MEDS ORDERED: propofoL 200 MG/20 ML VIAL As Ordered ONE (13:27)
[2023-05-23] MEDS ORDERED: fentaNYL 100 MCG/2 ML INJECTION As Ordered ONE (13:27)
[2023-05-23] MEDS ORDERED: LIDOCAINE 2% 100MG/5ML SDV (FOR ANES.) As Ordered ONE (15:04)
[2023-05-23 16:16] VITALS: BP 189/90; TEMP 97.9; O2SAT 95
== END 2023-05-23 16:10 | disposition home or self-care (01) ==
LOC: M OPP 13:04
PROVIDERS: ATTEND Internal Medicine Gastroenterology
DX: K29.71 Gastritis, unspecified, with bleeding (principal); K21.9 Gastro-esophageal reflux disease without esophagitis; I10 Essential (primary) hypertension; E03.9 Hypothyroidism, unspecified; E78.00 Pure hypercholesterolemia, unspecified; Z79.899 Other long term (current) drug therapy; Z79.890 Hormone replacement therapy; Z95.0 Presence of cardiac pacemaker
CPT/HCPCS: 43239; 88305; J3010